=== PATIENT | female | born 2000 | race Two or more races ===

== ENCOUNTER → 2024-11-01 | Outpatient (CLI) | payer MEDICAID ==
[~2024-11-01] VITALS: Ht 165.1 cm; Wt 74.8 kg
--- NOTE | 2024-11-05 14:22 | DVHSR ---
APPROVED REPORT Exam: Nuclear Stress Test Indication: Chest pain Ht: 5 ft 5 in Wt: 165 lbs BSA: 1.82 m2 HR: 68 bpm BP: 120/71 mmHg BMI: 27.45 Rhythm: NSR Medical History Medical History: Chest pain Medications: N/A Allergies: No known drug allergies Cardiac Risk Factors: Family Hx of CAD Stress Test Details Stress Test: Exercise stress testing was performed using a Delfino protocol. HR Resting HR: 68 bpmMax Heart Rate (APMHR): 198.275541 bpm Max HR Achieved: 169 bpmTarget HR (85% APMHR): 168.624694 bpm % of APMHR: 85.35 Recovery HR: 89 bpm HR response to stress: Normal HR response to stress BP Resting BP: 120/71 mmHg Max BP: 164/77 mmHg Recovery BP: 130/55 mmHg BP response to stress: Normal blood pressure response to stress. ECG Resting ECG: Sinus Rhythm Stress ECG: SVT Arrhythmia: None Recovery ECG: Sinus Rhythm Clinical Reason for Termination: Target HR achieved Stress Symptoms: None Exercise duration: 8 min sec Exercise capacity: 10.1 METs Stress ECG Conclusion ECG RESPONSE NON ISCHEMIC CARDIOLITE IMAGES NO PERFUSION ABNL LESS THAN 10% LIKELIHOOD FOR STRESS INDUCED ISCHEMIA EF >55% NM EXAM: Myocardial Perfusion REST/STRESS Imaging Protocol: Rest Tc-99m/Stress Tc-99m 1 day Resting Data Rest SPECT myocardial perfusion imaging was performed in supine position 30 minutes following the int ravenous injection of 11 mCi of Tc-99m Sestamibi. Time of rest injection: 08 Time of rest imagin Administration Route: IV Administration Site: Left AC Exercise Stress At peak stress, the patient was injected intravenously with 31.3mCi of Tc-99m Sestamibi. Time of stress injection: 0954 Time of stress imagin Administration Route: IV Administration Site: Left AC Heart Rate at time of stress injection: 169 bpm. Patient continued to exercise for 1 minute(s). Gated Stress SPECT was performed 15 minutes after stress injection. The images were gated to evaluate regional wall motion and calculate left ventricular ejection fracti on. Comments Cardiolite injection at 6 minutes, 43 seconds into test. Study Data Post stress, the left ventricular ejection was >55%.. Nuclear Conclusion ECG RESPONSE NON ISCHEMIC CARDIOLITE IMAGES NO PERFUSION ABNL LESS THAN 10% LIKELIHOOD FOR STRESS INDUCED ISCHEMIA EF >55%
== END | disposition home or self-care (01) ==
LOC: Rad HDHVI 08:42
PROVIDERS: ATTEND Internal Medicine Cardiovascular Disease
DX: R07.89 Other chest pain (principal); Z82.49 Family history of ischemic heart disease and other diseases of the circulatory system
CPT/HCPCS: 78452; 93017; A9500; 96374

== ENCOUNTER 2025-08-23 11:28 | Inpatient (IN) | payer MEDICAID ==
[~2025-08-23] VITALS: Ht 165.1 cm; Wt 80.2 kg
--- NOTE | 2025-08-23 12:03 | ED.PDOC ---
SOB-HPI HPI Comments HPI: 24 year old female presents to the emergency department with a chief complaint of cough onset 5 days. Patient began experiencing cough, sneezing, nasal congestion 5 days ago, was seen at Urgent Care are prescribed Z-pac, Methylprednisolone, began course 08/17/25, finished it last night. She noticed symptoms have not improved, is now experiencing epigastric pain and urinary symptoms including frequency and urinary dribbling. Denies nausea, vomiting, diarrhea, hematuria, headache, dizziness, shortness of breath. No other symptoms or modifying factors present at this time. Initial Vitals BP: 126/100 HR: 121 RR: 15 O2 Sat: 99% Temp: 99.6 F Past Medical history: Denies Past Surgical history: Denies Medications: Denies Social History: Denies smoking, ETOH, and drug use. Allergies: NKDA [place]: cough, runny nose, urinary symptoms. tachy HPI: Poor Historian. REVIEW OF SYSTEMS: CONSTITUTIONAL: Denies acute: fever, diaphoresis, chills, HEAD: Denies acute: headache, photophobia Eyes: Denies acute: Double vision, vision loss, eye pain, eye discharge. EARS: Denies acute: tinnitus, hearing loss, ear discharge, ear pain, THROAT: Denies acute: sore throat, swelling, difficulty swallowing , pain with swallowing, change in voice. NECK: Denies acute: neck pain, neck swelling, stiff neck. HEART: Denies acute : chest pain, palpitations, LUNGS: Denies acute: SOB, wheezing, hemoptysis ABDOMEN: Denies acute: abdominal pain, Nausea, Vomiting, diarrhea, melena , hematemesis, hematochezia SKIN: Denies acute: rash, redness, lesions, itchiness. EXTREMITIES: Denies acute: calf pain, numbness, tingling, weakness, denies pain in extremity. Denies acute: Low back pain. Neuro: Denies acute: focal neurological deficit, motor or sensory focal neurological deficit, tremors, seizure like activity, confusion, dizziness, change in mental status, loss of bowel or bladder function, cauda equina like symptoms. : Denies acute: dysuria, hematuria, flank pain, PSYCH: Denies acute: hallucination, suicidal ideation, homicidal ideation. FEMALE: Denies acute: abnormal vaginal bleeding, foul odor, unusual discharge. PHYSICAL EXAM: General: ----mild----acute distress, awake and alert. Head: normocephalic, atraumatic. No raccoon's eyes, no alvarado sign. Neck: supple, trachea is midline, no swelling. Throat: Normal phonation. Eyes:, no erythema, no purulent discharge, no proptosis, no icterus. Heart: regular tachycardia, no significant murmur appreciated. Lungs: no apparent respiratory distress, Able to speak in full sentences. No wheezing, no rhonchi, no crackles. No stridors Clear to auscultation bilaterally. Abdomen: mild epigastric tender to palpation, non distended, soft, no guarding, no rebound, + bowel sounds. Neuro: Awake, Alert, oriented to name, self, situation, follows commands GCS=15. Speech is normal. Skin: no petechia, no purpura, no cyanosis, non-pale, not jaundice. Lower extremities: --no - Pitting edema no deformity, no focal swelling, no calf TTP. Makes eye contact. moves all four extremities. Face: no apparent facial droop. Ambulating in the ED independently. ED COURSE: DISCLAIMER: This medical document was created using an electronic medical record system with voice recognition software and computerized dictation system. Although this document has been carefully reviewed, there might still be some phonetic and typographical errors. Occasional wrong-word or "sound-alike" substitutions may have occurred due to the inherent limitations of voice recognition software. These areas are purely typographical due to imperfections of the software programs and do not reflect any compromise in the patient's medical care. Please read the chart carefully and recognize, using context, where these substitutions have occurred. Chief Complaint: Cough Time Seen by MD: 11:55 Primary Care Provider: RADU Jenkins notes: Medications, Allergies Information Source: Patient Mode of Arrival: Ambulatory Severity: Moderate Timing: Days Duration: Since onset Context: At Rest PE Risk Factors: None Prehospital treatment: Other (Z-aki) Past Medical History PAST MEDICAL HISTORY: Denies Surgical History: Denies all surgeries INSIDE TRUCKER History: No Pertinent INSIDE TRUCKER History Family History Family History: Unknown Social History Smoker: Non-Smoker Alcohol: Denies ETOH Use Drugs: Denies Drug Use Lives In: Home Was a procedure done? Was a procedure done?: No X-Ray, Labs, Meds, VS Vital Signs Date Time Temp Pulse Resp B/P (MAP) Pulse Ox O2 Delivery O2 Flow Rate FiO2 08/23/25 13:39 101.2 128 19 133/84 (100) 98 101.2 08/23/25 13:39 128 19 98 Room Air 08/23/25 11:31 99.6 121 15 126/100 99 99.6 08/23/25 11:31 15 99 Room Air* 0 21 Lab Test 08/23/25 12:26 08/23/25 12:10 08/23/25 12:00 Range/Units White Blood Count 9.7 4.4-10.8 10^3/uL Red Blood Count 4.85 4.0-5.20 10^6/uL Hemoglobin 14.3 12.2-16.2 g/dL Hematocrit 42.1 36.0-46.0 % Mean Corpuscular Volume 86.7 80.0-100.0 fL Mean Corpuscular Hemoglobin 29.4 28.0-32.0 pg Mean Corpuscular Hemoglobin Concent 33.9 32.0-36.0 g/dL Red Cell Distribution Width 12.3 11.8-14.3 % Platelet Count 326 140-450 10^3/uL Mean Platelet Volume 7.4 6.9-10.8 fL Neutrophils (%) (Auto) 79.1 37.0-80.0 % Lymphocytes (%) (Auto) 11.2 10.0-50.0 % Monocytes (%) (Auto) 8.5 0.0-12.0 % Eosinophils (%) (Auto) 0.8 0.0-7.0 % Basophils (%) (Auto) 0.4 0.0-2.0 % Neutrophils # (Auto) 7.6 1.6-8.6 10 ^3/uL Lymphocytes # (Auto) 1.1 0.4-5.4 10 ^3/uL Monocytes # (Auto) 0.8 0-1.3 10 ^3/uL Eosinophils # (Auto) 0.1 0-0.8 10 ^3/uL Basophils # (Auto) 0 0-0.2 10 ^3/uL Nucleated Red Blood Cells 0.0 % Sodium Level 139 136-145 mmol/L Potassium Level 3.8 3.5-5.1 mmol/L Chloride Level 103 98-107 mmol/L Carbon Dioxide Level 27 20-31 mmol/L Anion Gap 9 5-15 Blood Urea Nitrogen 7 L 9-23 mg/dL Creatinine 0.74 0.550-1.02 mg/dL Glomerular Filtration Rate Calc 117 >90 mL/min BUN/Creatinine Ratio 9.5 L 10.0-20.0 Serum Glucose 102 74-106 mg/dL Lactic Acid Level 1.5 0.4-2.0 mmol/L Calcium Level 9.0 8.7-10.4 mg/dL Magnesium Level 1.9 1.6-2.6 mg/dL Total Bilirubin 0.5 0.2-1.0 mg/dL Aspartate Amino Transferase (AST) 103 H 13-40 U/L Alanine Aminotransferase (ALT) 120 H 7-40 U/L Alkaline Phosphatase 62 46-116 U/L Total Protein 7.4 5.7-8.2 g/dL Albumin 4.5 3.2-4.8 g/dL Influenza Type A Antigen Positive Negative Influenza Type B Antigen Negative Negative SARS-CoV-2 Antigen (Rapid) Negative NEGATIVE Urine Color Colorless Yellow Urine Clarity Turbid H Clear Urine pH 6.5 5.0-9.0 Urine Specific [place] 1.022 1.001-1.035 Urine Protein Trace H Negative Urine Ketones Negative Negative Urine Blood 3+ H Negative /uL Urine Nitrite Negative Negative Urine Bilirubin Negative Negative Urine Urobilinogen Normal Negative mg/dL Urine Leukocyte Esterase 1+ Negative /uL Urine RBC 446 0 - 4 /hpf Urine Microscopic WBC 29 H 0-5 /HPF Urine Squamous Epithelial Cells Few <5 /hpf Urine Bacteria Few H None Seen /hpf Urine Glucose Normal Normal mg/dL [facility] [id number] [place] [address] Ph: [phone] DIAGNOSTIC IMAGING Diagnostic Imaging Report : [id number] Signed PATIENT: ALEX HAYWOODLIYAHACCT: [id number] UNIT: [id number] : 2000 LOC: ER ROOM / BED: / AGE / SEX: 24 / F ADM STATUS: REG ER SERVICE 1200 ORDERING PHYSICIAN: JOE BACK DO PROCEDURE(s): CXRP - CHEST PORTABLE REASON: cough ORDER NUMBER(s): [id number], ACCESSION NUMBER(s): [id number] CHEST RADIOGRAPH INDICATION: cough TECHNIQUE: Single frontal view of the chest was obtained COMPARISON: None FINDINGS: Lines and Tubes: None Lungs: Clear Pleura: No effusion. No pneumothorax. Cardiomediastinal contours: Unremarkable Bones: Unremarkable IMPRESSION: 1. No acute disease. ATED BY: CECIL RAMOS MD DICTATED DATE/TIME: 08/23/25 1234 SIGNED BY: CECIL RAMOS MD SIGNED DATE/TIME: 08/23/25 1234 CC: Time of 1ST Reevaluation: 12: Reevaluation 1ST: Unchanged Patient Education/Counseling: Diagnosis, Treatment Family Education/Counseling: No Family Present Departure 1 Departure Time of Disposition: 13:56 Impression: Primary Impression: Influenza A Additional Impressions: UTI (urinary tract infection) Elevated LFTs Additional Instructions: [place] [address] Ph: [phone] DIAGNOSTIC IMAGING Diagnostic Imaging Report : [id number] Signed PATIENT: ALEX HAYWOOD ACCT: [id number] UNIT: [id number] : 2000 LOC: ER ROOM / BED: / AGE / SEX: 24 / F ADM STATUS: REG ER SERVICE 1200 ORDERING PHYSICIAN: JOE BACK DO PROCEDURE(s): CXRP - CHEST PORTABLE REASON: cough ORDER NUMBER(s): [id number], ACCESSION NUMBER(s): [id number] CHEST RADIOGRAPH INDICATION: cough TECHNIQUE: Single frontal view of the chest was obtained COMPARISON: None FINDINGS: Lines and Tubes: None Lungs: Clear Pleura: No effusion. No pneumothorax. Cardiomediastinal contours: Unremarkable Bones: Unremarkable IMPRESSION: 1. No acute disease. ATED BY: CECIL RAMOS MD DICTATED DATE/TIME: 08/23/25 1234 SIGNED BY: CECIL RAMOS MD SIGNED DATE/TIME: 08/23/25 1234 CC: e-Prescriptions Nitrofurantoin Monohydrate Mac (Macrobid) 100 Mg Cap 100 MG PO BID for 7 Days, #14 CAP Prov: JOE BACK DO 08/23/25 Discharged With: Self Critical Care Note Critical Care Time?: No I personally scribed for JOE BACK DO ([email or web address]) on 08/23/25 at 12:03. Electronically submitted by Bernice Houser ([email or web address]). I personally scribed for JOE BACK DO ([email or web address]) on 08/23/25 at 12:44. Electronically submitted by Bernice Houser ([email or web address]). JOE BACK DO Aug 23, 2025 12:03
--- NOTE | 2025-08-23 12:36 | DVH ---
CHEST RADIOGRAPH INDICATION: cough TECHNIQUE: Single frontal view of the chest was obtained COMPARISON: None FINDINGS: Lines and Tubes: None Lungs: Clear Pleura: No effusion. No pneumothorax. Cardiomediastinal contours: Unremarkable Bones: Unremarkable IMPRESSION: 1. No acute disease.
[2025-08-23 12:49] LABS: Hematocrit 42.1 % (36.0-46.0); Hemoglobin 14.3 g/dL (12.2-16.2); Mean Corpuscular Hemoglobin 29.4 pg (28.0-32.0); Mean Corpuscular Volume 86.7 fL (80.0-100.0); Nucleated Red Blood Cells % 0.0 %
[2025-08-23 13:07] LABS: Albumin 4.5 g/dL (3.2-4.8); Alkaline Phosphatase 62 U/L (46-116); Anion Gap 9 (5-15); BUN/Creatinine Ratio 9.5 (10.0-20.0); Bilirubin, Total 0.5 mg/dL (0.2-1.0); Calcium 9.0 mg/dL (8.7-10.4); Carbon Dioxide 27 mmol/L (20-31); Chloride 103 mmol/L (98-107); Glucose 102 mg/dL (74-106); Magnesium 1.9 mg/dL (1.6-2.6); Potassium 3.8 mmol/L (3.5-5.1); Sodium 139 mmol/L (136-145); Total Protein 7.4 g/dL (5.7-8.2)
[2025-08-23 13:08] LABS: Alanine Aminotransferase 120 U/L (7-40); Blood Urea Nitrogen 7 mg/dL (9-23)
[2025-08-23 13:23] LABS: Urine Protein, UAD TRACE (Negative)
[2025-08-23 13:24] LABS: COVID19 ANTIGEN SOFIA FIA NEGATIVE (NEGATIVE)
[2025-08-23] MEDS ORDERED: NITR-87 PO (13:58)
[2025-08-23] MEDS: SODIUM CHLORIDE 0.9% 1,000 ML IV ONE ×2 (14:02→15:16)
[2025-08-23] MEDS ORDERED: ACETAMINOPHEN 500 MG TAB or CAP PO STA (14:39)
[2025-08-23] MEDS: ACETAMINOPHEN 325 MG TAB PO ONE (15:26)
[2025-08-23 16:07] LABS: Base Excess -6.0 mmol/L (-2.0-3.0)
[2025-08-23] MEDS ORDERED: guaiFENesin-DM 100/10mg/5ml SYR PO PRN (18:15)
--- NOTE | 2025-08-23 18:40 | DVHHPRES ---
History of Present Illness Resident Creating Document: BUNNYELENGailALIN RESIDENT History of Present Illness Julius is a patient presenting with flu symptoms that have been ongoing since August 16. She initially sought care at urgent care on August 17, where she was prescribed antibiotics and steroids. However, these medications did not provide relief, and her condition worsened after completing the course yesterday. Last night, she experienced difficulty breathing, choking sensations, and difficulty swallowing. She reports that friends became sick after her initial illness, suggesting she may have been the source of transmission to her social contacts. She lives with her mother and denies having any personal medical conditions, fever , dry cough . PMH - none Surgical History - Appendectomy Family History - Mother: Asthma Social History - Living Situation: Lives at home with mother, denies smoking, alcohol and other drug abuse Medications and Supplements - Antibiotics - Recently completed course. Did not work. - Steroids - Recently completed course yesterday. Review of Systems Respiratory: Positive for cough, difficulty breathing, difficulty swallowing, fever, dry cough. Review of Systems Allergies: Coded Allergies: NO KNOWN ALLERGIES (Unverified , 11/08/14) Medications Current Medications Medications Dose Ordered Sig/Jaclyn Route Start Time Stop Time Status Last Admin Dose Admin Acetaminophen 650 mg ONCE STAT PO 08/23/25 14:39 08/23/25 14:40 Cancel Sodium Chloride 10 ml Q8HR IV 08/23/25 22:00 UNV Sodium Chloride 1,000 ml @ 60 mls/hr [id number] IV 08/23/25 18:15 UNV Ondansetron HCl 4 mg Q4HP PRN IV 08/23/25 18:15 UNV Enoxaparin Sodium 40 mg DAILY SC 08/24/25 10:00 UNV Zinc Sulfate 220 mg DAILY PO 08/24/25 10:00 UNV Ascorbic Acid 500 mg BID PO 08/23/25 22:00 UNV Multivitamins 1 tab DAILY PO 08/24/25 10:00 UNV Acetaminophen 650 mg Q6HP PRN PO 08/23/25 18:15 UNV Azithromycin 250 ml @ 125 mls/hr DAILY IV 08/24/25 10:00 UNV Oseltamivir Phosphate 75 mg Q12HR PO 08/23/25 22:00 08/28/25 21:59 UNV Ipratropium [place] 0.5 mg Q6HWA NEB 08/24/25 06:00 UNV Albuterol 2.5 mg Q6HPRN PRN NEB 08/23/25 18:15 UNV Guaifenesin/ Dextromethorphan 10 ml Q4HP PRN PO 08/23/25 18:15 UNV Pantoprazole Sodium 40 mg DAILY@0600 PO 08/24/25 06:00 UNV Exam Vital Signs Vital Signs Date Time Temp Pulse Resp B/P (MAP) Pulse Ox O2 Delivery O2 Flow Rate FiO2 08/23/25 17:26 98.9 115 18 127/81 (96) 99 98.9 08/23/25 13:39 Room Air 08/23/25 11:31 0 21 Exam Pt is lying on bed General Appearance: Alert, Oriented X3, Cooperative, Not in acute distress HEENT: Atraumatic, Mucous membranes moist/pink Respiratory: wheeze b/l Cardiovascular: Regular rate, Normal S1, Normal S2, No murmurs Abdominal: Active bowel sounds, Soft, no distention, no tenderness Extremities: No edema, Normal pulses, No tenderness/swelling Skin: No Significant rash, except past surgical scars Neuro: Normal speech, sensorimotor deficits none Psych/Mental Status: Mental status NL, Mood NL Nurse was there as surveillance inspector during examination Labs/Xrays Labs Test 08/23/25 16:03 08/23/25 12:26 08/23/25 12:10 08/23/25 12:00 Range/Units Blood Gas Specimen Type Arterial Blood Gas Sample Site Right brachial Blood Gas Patient Temperature 37.0 Arterial Blood Date Drawn [id number] Arterial Blood pH 7.394 7.350-7.450 Arterial Blood Partial Pressure CO2 29.5 L 32.0-45.0 mmHg Arterial Blood Partial Pressure O2 90.5 83.0-108.0 mmHg Arterial Blood HCO3 17.6 L 21.0-28.0 mmol/L Arterial Blood Oxygen Saturation 96.5 94.0-98.0 % Arterial Blood Base Excess -6.0 L -2.0-3.0 mmol/L Arterial Blood Oxyhemoglobin 95.2 94.0-98.0 % Arterial Blood Carboxyhemoglobin 0.6 0.5-1.5 % Arterial Blood Methemoglobin 0.7 0.0-1.5 % Arterial Blood Deoxyhemoglobin 3.5 0.0-5.0 % Micahel Test N/a Blood Gas Total Hemoglobin 13.30 12.0-16.0 g/dL Blood Gas Modality Room air FiO2 % 21.0 White Blood Count 9.7 4.4-10.8 10^3/uL Red Blood Count 4.85 4.0-5.20 10^6/uL Hemoglobin 14.3 12.2-16.2 g/dL Hematocrit 42.1 36.0-46.0 % Mean Corpuscular Volume 86.7 80.0-100.0 fL Mean Corpuscular Hemoglobin 29.4 28.0-32.0 pg Mean Corpuscular Hemoglobin Concent 33.9 32.0-36.0 g/dL Red Cell Distribution Width 12.3 11.8-14.3 % Platelet Count 326 140-450 10^3/uL Mean Platelet Volume 7.4 6.9-10.8 fL Neutrophils (%) (Auto) 79.1 37.0-80.0 % Lymphocytes (%) (Auto) 11.2 10.0-50.0 % Monocytes (%) (Auto) 8.5 0.0-12.0 % Eosinophils (%) (Auto) 0.8 0.0-7.0 % Basophils (%) (Auto) 0.4 0.0-2.0 % Neutrophils # (Auto) 7.6 1.6-8.6 10 ^3/uL Lymphocytes # (Auto) 1.1 0.4-5.4 10 ^3/uL Monocytes # (Auto) 0.8 0-1.3 10 ^3/uL Eosinophils # (Auto) 0.1 0-0.8 10 ^3/uL Basophils # (Auto) 0 0-0.2 10 ^3/uL Nucleated Red Blood Cells 0.0 % Sodium Level 139 136-145 mmol/L Potassium Level 3.8 3.5-5.1 mmol/L Chloride Level 103 98-107 mmol/L Carbon Dioxide Level 27 20-31 mmol/L Anion Gap 9 5-15 Blood Urea Nitrogen 7 L 9-23 mg/dL Creatinine 0.74 0.550-1.02 mg/dL Glomerular Filtration Rate Calc 117 >90 mL/min BUN/Creatinine Ratio 9.5 L 10.0-20.0 Serum Glucose 102 74-106 mg/dL Lactic Acid Level 1.5 0.4-2.0 mmol/L Calcium Level 9.0 8.7-10.4 mg/dL Magnesium Level 1.9 1.6-2.6 mg/dL Total Bilirubin 0.5 0.2-1.0 mg/dL Aspartate Amino Transferase (AST) 103 H 13-40 U/L Alanine Aminotransferase (ALT) 120 H 7-40 U/L Alkaline Phosphatase 62 46-116 U/L Total Protein 7.4 5.7-8.2 g/dL Albumin 4.5 3.2-4.8 g/dL Influenza Type A Antigen Positive Negative Influenza Type B Antigen Negative Negative SARS-CoV-2 Antigen (Rapid) Negative NEGATIVE Urine Color Colorless Yellow Urine Clarity Turbid H Clear Urine pH 6.5 5.0-9.0 Urine Specific [place] 1.022 1.001-1.035 Urine Protein Trace H Negative Urine Ketones Negative Negative Urine Blood 3+ H Negative /uL Urine Nitrite Negative Negative Urine Bilirubin Negative Negative Urine Urobilinogen Normal Negative mg/dL Urine Leukocyte Esterase 1+ Negative /uL Urine RBC 446 0 - 4 /hpf Urine Microscopic WBC 29 H 0-5 /HPF Urine Squamous Epithelial Cells Few <5 /hpf Urine Bacteria Few H None Seen /hpf Urine Glucose Normal Normal mg/dL SEPSIS Sepsis Screen Date sepsis recognized/suspect: Aug 23, 2025 Time Sepsis recognized/suspect: 1411 Recent Procedure: No On Antibiotic Therapy: Yes (AZITHROMYCIN ) Respiratory Rate >20: No Heart Rate >90: Yes (129) Temp<36 C (96.8 F) or >38.3 C: Yes (101.2) SBP <90 or MAP <65 mmHG: No New Acute Mental Status Change: No Is the patient on CPAP, BIPAP,: No Physician Orders Trouble Operator (08/23/25 ) Chest Portable (08/23/25 12:00) Abg W/ Co-Ox (08/23/25 15:18) Admit (08/23/25 18:11) Code Status (08/23/25 18:11) Sodium Chloride Lock (Saline Lock Ns) (08/23/25 22:00) Sodium Chloride 0.9% (08/23/25 18:15) Oxygen Per Hour (08/23/25 18:11) Ondansetron Hcl (Zofran) (08/23/25 18:15) Enoxaparin Sodium (Lovenox) (08/24/25 10:00) Zinc Sulfate (08/24/25 10:00) Ascorbic Acid Tablet (Vitamin C Tablet) (08/23/25 22:00) Multiple Vitamin Tablet (Mvi Tab) (08/24/25 10:00) Complete Blood Count (08/24/25 04:00) Comprehensive Metabolic Panel (08/24/25 04:00) Condition: Fair (08/23/25 18:11) Acetaminophen Tablet (Tylenol Tablet) (08/23/25 18:15) Azithromycin 500mg/250ml (Zithromax 500m (08/24/25 10:00) Azithromycin 500mg/250ml (Zithromax 500m (08/23/25 18:15) Oseltamivir 75mg Capsule (Tamiflu 75mg C (08/23/25 22:00) Ipratropium Medneb (Atrovent Medneb) (08/24/25 06:00) Albuterol Medneb (Ventolin Medneb) (08/23/25 18:15) Respiratory Culture W/ Gs (08/23/25 18:11) Regular Diet (08/23/25 Dinner) Magnesium (08/23/25 18:11) Drug Screen (08/23/25 18:11) Rapid Strep Screen - Throat (08/23/25 18:11) Guaifenesin-Dextromet Liquid (Robitussin (08/23/25 18:15) Pantoprazole Tablet (Protonix Tablet) (08/24/25 06:00) Ceftriaxone 1gm/50ml (Rocephin) (08/24/25 09:00) Urine Bacterial Culture (08/23/25 18:37) Vital Signs Date Time Temp Pulse Resp B/P (MAP) Pulse Ox O2 Delivery O2 Flow Rate FiO2 08/23/25 17:26 98.9 115 18 127/81 (96) 99 98.9 08/23/25 16:33 99.2 08/23/25 15:26 101.0 08/23/25 13:39 101.2 128 19 133/84 (100) 98 101.2 08/23/25 13:39 128 19 98 Room Air 08/23/25 11:31 99.6 121 15 126/100 99 99.6 08/23/25 11:31 15 99 Room Air* 0 21 Laboratory Tests Test 08/23/25 12:26 Lactic Acid Level 1.5 mmol/L (0.4-2.0) White Blood Count 9.7 10^3/uL (4.4-10.8) Medications Medications Dose Ordered Sig/Jaclyn Route Start Time Stop Time Status Last Admin Dose Admin Acetaminophen 650 mg ONCE ONCE PO 08/23/25 15:15 08/23/25 15:16 DC 08/23/25 15:26 650 MG Ceftriaxone Sodium 50 ml @ 100 mls/hr ONCE ONCE IV 08/23/25 14:00 08/23/25 14:30 DC 08/23/25 14:00 100 MLS/HR Sodium Chloride 1,000 ml @ 1,000 mls/hr Q1H ONCE IV 08/23/25 12:15 08/23/25 13:14 DC 08/23/25 14:02 1,000 MLS/HR Sodium Chloride 1,000 ml @ 1,000 mls/hr Q1H ONCE IV 08/23/25 14:45 08/23/25 15:44 DC 08/23/25 15:16 1,000 MLS/HR Assessment/Plan Assessment/Plan Julius presents with influenza symptoms since August 16, with worsening respiratory symptoms including difficulty breathing and wheezing despite completing antibiotics and steroids from urgent care. Influenza A PNA R/o Strep throat Plan: - Admit med/surge - Isolation precautions - Administer IV azithromycin - start Tamiflu q.12 for 5 days - Provide breathing treatments for bronchospasm - Cough medication Robitassin for symptom relief - Monitor respiratory status closely; initiate emergency interventions if severe shortness of breath develops Acute complicated UTI/ cystitis Plan: - evident on urinalysis - ordered urine bacterial culture - currently giving Rocephin GI PPX: Protonox VTE ppx: Lovenox Diet: Regular Goals of care addressed with the patient for more than 27 minutes: Full code status Case discussed with , patient and nurse Plan discussed with: Patient, Other (mom and rn) My Orders Orders - JP HOLLIS RESIDENT Procedure Category Date Status Time Admit ADMIT 08/23/25 Transmitted 18:11 Code Status CODE 08/23/25 Transmitted 18:11 Sodium Chloride Lock PHA 08/23/25 In Process (Saline Lock Ns) 22:00 Sodium Chloride 0.9% PHA 08/23/25 In Process 18:15 Oxygen Per Hour RT 08/23/25 Transmitted 18:11 Ondansetron Hcl PHA 08/23/25 Logged (Zofran) 18:15 Enoxaparin Sodium PHA 08/24/25 Logged (Lovenox) 10:00 Zinc Sulfate PHA 08/24/25 Logged 10:00 Ascorbic Acid Tablet PHA 08/23/25 In Process (Vitamin C Tablet) 22:00 Multiple Vitamin PHA 08/24/25 Logged Tablet (Mvi Tab) 10:00 Complete Blood Count LAB 08/24/25 Verified 04:00 Comprehensive LAB 08/24/25 Verified Metabolic Panel 04:00 Condition: Fair EUSEBIA 08/23/25 In Process 18:11 Acetaminophen Tablet PHA 08/23/25 In Process (Tylenol Tablet) 18:15 Azithromycin PHA 08/24/25 Logged 500mg/250ml 10:00 Azithromycin PHA 08/23/25 In Process 500mg/250ml 18:15 Oseltamivir 75mg PHA 08/23/25 Logged Capsule (Tamiflu 75mg 22:00 Ipratropium Medneb PHA 08/24/25 In Process (Atrovent Medneb) 06:00 Albuterol Medneb PHA 08/23/25 In Process (Ventolin Medneb) 18:15 Respiratory Culture GEOVANNA 08/23/25 Logged W/ Gs 18:11 Regular Diet DIET 08/23/25 Transmitted Dinner Magnesium LAB 08/23/25 Logged 18:11 Drug Screen LAB 08/23/25 Logged 18:11 Rapid Strep Screen - LAB 08/23/25 Logged Throat 18:11 Guaifenesin-Dextromet PHA 08/23/25 In Process Liquid (Robitussin 18:15 Pantoprazole Tablet PHA 08/24/25 Logged (Protonix Tablet) 06:00 Ceftriaxone 1gm/50ml PHA 08/24/25 Logged (Rocephin) 09:00 Urine Bacterial GEOVANNA 08/23/25 Uncollected Culture 18:37 Visit Coding STANDARD RES Billing Provider: HALEY HOFFMAN MD Date of Service if different f: Aug 23, 2025 Common Visit Codes: [id number] INP/OBS CARE (HIGH) Secondary Visit Codes: [id number] CARE PLAN 30 MINUTES JP HOLLIS RESIDENT Aug 23, 2025 18:40
[2025-08-23 19:12] LABS: Rapid Strep A Screen-Throat Negative
[2025-08-23 19:23] VITALS: BP 127/81; PULSE 115; RESP 18; TEMP 98.9; O2SAT 100
[2025-08-23] MEDS: SODIUM CHLORIDE 0.9% 1,000 ML IV SCH (19:38)
[2025-08-23] MEDS: guaiFENesin-DM 100/10mg/5ml SYR PO ONE (19:53)
[2025-08-23] MEDS: AZITHROMYCIN 500MG/250ML 250 ML IV ONE (19:54)
[2025-08-23] MEDS: SODIUM CHLOR 0.9% PF (SALINE LOCK) 10ML VIAL/SYR IV SCH (22:43)
[2025-08-23] MEDS: ONDANSETRON HCL 4 MG/2 ML VIAL IV PRN (22:43)
[2025-08-23] MEDS: ACETAMINOPHEN 325 MG TAB PO PRN (22:45)
[2025-08-23] MEDS: OSELTAMIVIR 75 MG CAP PO SCH (23:17)
[2025-08-23] MEDS: ASCORBIC ACID 500 MG TAB PO SCH (23:17)
[2025-08-24] VITALS (7 sets, daily range): BP systolic 112; BP diastolic 75; PULSE 80–101; RESP 16–20; TEMP 99.1; O2SAT 96–100
[2025-08-24] MEDS: PANTOPRAZOLE 40 MG TAB PO SCH (06:20)
[2025-08-24] MEDS: IPRATROPIUM BROM 0.5 MG/2.5ML INH SOL NEB SCH (06:38)
[2025-08-24] MEDS: ALBUTEROL SULF 2.5 MG/0.5ML(0.5%) NEB SOLN NEB PRN (06:38)
[2025-08-24 06:59] LABS: Hematocrit 36.9 % (36.0-46.0); Hemoglobin 12.7 g/dL (12.2-16.2); Mean Corpuscular Hemoglobin 30.2 pg (28.0-32.0); Mean Corpuscular Volume 87.7 fL (80.0-100.0); Nucleated Red Blood Cells % 0.1 %
[2025-08-24 07:23] LABS: Anion Gap 7 (5-15); Carbon Dioxide 25 mmol/L (20-31); Chloride 108 mmol/L (98-107); Potassium 3.8 mmol/L (3.5-5.1); Sodium 140 mmol/L (136-145)
[2025-08-24 07:24] LABS: Alkaline Phosphatase 51 U/L (46-116); BUN/Creatinine Ratio 10.2 (10.0-20.0); Calcium 8.3 mg/dL (8.7-10.4)
[2025-08-24 07:25] LABS: Blood Urea Nitrogen 6 mg/dL (9-23); Glucose 87 mg/dL (74-106); Total Protein 6.2 g/dL (5.7-8.2)
[2025-08-24 07:26] LABS: Alanine Aminotransferase 135 U/L (7-40); Albumin 3.7 g/dL (3.2-4.8); Bilirubin, Total 0.4 mg/dL (0.2-1.0)
[2025-08-24 09:16] LABS: Amphetamine Screen, Urine Neg (NEGATIVE); Barbiturate Scree,Urine Neg (NEGATIVE); Benzodiazephine Screen, Urine Neg (NEGATIVE); Cannabinoid Screen, Urine Neg (NEGATIVE); Cocaine Screen, Urine Neg (NEGATIVE); Opiate Scree,Urine Neg (NEGATIVE); Phencyclidine Screen, Urine Neg (NEGATIVE)
[2025-08-24] MEDS: ENOXAPARIN SOD 40 MG/0.4 ML SYRINGE SC SCH (12:02)
[2025-08-24] MEDS: AZITHROMYCIN 500MG/250ML 250 ML IV SCH (12:02)
[2025-08-24] MEDS: ZINC SULFATE 220mg CAP or TAB PO SCH (12:02)
[2025-08-24] MEDS: MULTIPLE VITAMIN TAB PO SCH (12:02)
[2025-08-24] MEDS: DOXYCYCLINE 100MG/100ML 100 ML IV SCH (14:00)
--- NOTE | 2025-08-24 14:09 | DVHPN2 ---
Reviewed: H&P Changes from previous H/P or p: No Changes General: Per HPI Objective Vitals Vital Signs Date Time Temp Pulse Resp B/P (MAP) Pulse Ox O2 Delivery O2 Flow Rate FiO2 08/24/25 13:24 98.6 08/24/25 08:00 97 08/24/25 07:28 88 114/68 (83) 98 08/24/25 07:28 Room Air* 0 21 Intake/Output Intake and Output 08/24/25 06:59 Intake Total 2300 ml Output Total 400 ml Balance 1900 ml Intake IV Total 2300 ml Output Emesis 400 ml Exam GEN: Healthy appearing, well-developed, NAD. HEENT: NC/AT; MMM. CV: RRR, no m/r/g. LUNGS: CTAB, no w/r/c. ABD: Soft, NT/ND, NBS, no masses or organomegaly. EXT: skin Warm, well perfused. no rashes. No clubbing, cyanosis, or edema. NEURO: Ambulating with no limitations. No focal deficits. Medications Current Medications Medications Dose Ordered Sig/Jaclyn Route Start Time Stop Time Status Last Admin Dose Admin Acetaminophen 650 mg ONCE STAT PO 08/23/25 14:39 08/23/25 14:40 Cancel Sodium Chloride 10 ml Q8HR IV 08/23/25 22:00 08/24/25 06:05 10 ML Sodium Chloride 1,000 ml @ 60 mls/hr [id number] IV 08/23/25 18:15 08/24/25 12:14 60 MLS/HR Ondansetron HCl 4 mg Q4HP PRN IV 08/23/25 18:15 08/23/25 22:43 4 MG Enoxaparin Sodium 40 mg DAILY SC 08/24/25 10:00 08/24/25 12:02 40 MG Zinc Sulfate 220 mg DAILY PO 08/24/25 10:00 08/24/25 12:02 220 MG Ascorbic Acid 500 mg BID PO 08/23/25 22:00 08/24/25 12:02 500 MG Multivitamins 1 tab DAILY PO 08/24/25 10:00 08/24/25 12:02 1 TAB Acetaminophen 650 mg Q6HP PRN PO 08/23/25 18:15 08/24/25 12:15 650 MG Oseltamivir Phosphate 75 mg Q12HR PO 08/23/25 22:00 08/28/25 21:59 08/24/25 12:02 75 MG Ipratropium [place] 0.5 mg Q6HWA NEB 08/24/25 06:00 08/24/25 06:38 0.5 MG Albuterol 2.5 mg Q6HPRN PRN NEB 08/23/25 18:15 08/24/25 06:38 2.5 MG Guaifenesin/ Dextromethorphan 10 ml Q4HP PRN PO 08/23/25 18:15 Pantoprazole Sodium 40 mg DAILY@0600 PO 08/24/25 06:00 08/24/25 06:20 40 MG Ceftriaxone Sodium 50 ml @ 100 mls/hr DAILY@09 IV 08/24/25 09:00 08/24/25 09:14 100 MLS/HR Doxycycline Hyclate 100 ml @ 50 mls/hr Q12H IV 08/24/25 14:00 Laboratory Results Laboratory Tests 08/24/25 06:42 Chemistry Test 08/23/25 18:41 08/24/25 06:42 Magnesium Level 2.0 mg/dL (1.6-2.6) Albumin 3.7 g/dL (3.2-4.8) Calcium Level 8.3 mg/dL (8.7-10.4) L Total Protein 6.2 g/dL (5.7-8.2) LFT Test 08/24/25 06:42 Alanine Aminotransferase (ALT) 135 U/L (7-40) H Alkaline Phosphatase 51 U/L (46-116) Aspartate Amino Transferase (AST) 83 U/L (13-40) H Total Bilirubin 0.4 mg/dL (0.2-1.0) Urinalysis Test 08/23/25 12:00 Urine Color Colorless (Yellow) Urine Clarity Turbid (Clear) H Urine pH 6.5 (5.0-9.0) Urine Specific [place] 1.022 (1.001-1.035) Urine Protein Trace (Negative) H Urine Ketones Negative (Negative) Urine Blood 3+ /uL (Negative) H Urine Nitrite Negative (Negative) Urine Bilirubin Negative (Negative) Urine Urobilinogen Normal mg/dL (Negative) Urine Leukocyte Esterase 1+ /uL (Negative) Urine RBC 446 /hpf (0 - 4) Urine Microscopic WBC 29 /HPF (0-5) H Urine Squamous Epithelial Cells Few /hpf (<5) Urine Bacteria Few /hpf (None Seen) H Urine Glucose Normal mg/dL (Normal) Blood Gas Results Test 08/23/25 16:03 Arterial Blood pH 7.394 (7.350-7.450) FiO2 % 21.0 Microbiology Microbiology Date/Time Source Procedure Growth Status 08/23/25 18:22 Throat Nose/Throat Culture - Preliminary Resulted Labs and/or images reviewed: Labs reviewed by me, Image(s) reviewed by me Assessment/Plan Assessment/Plan Julius is a patient presenting with flu symptoms that have been ongoing since August 16. She initially sought care at urgent care on August 17, where she was prescribed antibiotics and steroids. However, these medications did not provide relief, and her condition worsened after completing the course yesterday. Last night, she experienced difficulty breathing, choking sensations, and difficulty swallowing. She reports that friends became sick after her initial illness, suggesting she may have been the source of transmission to her social contacts. She lives with her mother and denies having any personal medical conditions, fever , dry cough . 08/24: Patient started having URI symptoms 2 weeks ago, was treated in urgent Care with azithromycin and prednisone. Patient's symptoms returned. She came in with a shortness of breath, URI symptoms, found to have influenza pneumonia. Patient likely has postviral pneumonia, influenza a infection, UTI possible. Patient on ceftriaxone azithromycin, since patient failed azithromycin we will do ceftriaxone and doxycycline. Continue rescue inhalers prn. Continue Tamiflu for flu a infection. Patient will likely need inpatient treatment for another day until stabilized. Diagnosis: Pneumonia, community-acquired, Gram-negative/Gram-positive possible Postviral pneumonia, Gram-positive cocci staph likely Influenza a infection Bronchitis possible Ruled out strep pharyngitis Acute complicated UTI Influenza A PNA R/o Strep throat - Admit med/surge - Isolation precautions - start Tamiflu q.12 for 5 days - Provide breathing treatments for bronchospasm - Cough medication Robitassin for symptom relief - Monitor respiratory status closely; initiate emergency interventions if severe shortness of breath develops - evident on urinalysis - ordered urine bacterial culture - currently giving Rocephin and doxycycline. GI PPX: Protonox VTE ppx: Lovenox Diet: Regular Med surge Full code Plan discussed with: Patient My Orders Orders - LAWRENCE KOENIG MD Procedure Category Date Status Time Abdomen Limited US 08/24/25 Taken 13:15 Acute Hepatitis Panel LAB 08/25/25 Verified 04:00 Comprehensive LAB 08/25/25 Verified Metabolic Panel 04:00 Complete Blood Count LAB 08/25/25 Verified 04:00 Doxycycline PHA 08/24/25 In Process 100mg/100ml 14:00 Date of Service: Aug 24, 2025 Billing Provider: LAWRENCE KOENIG MD Common Visit Codes: [id number] INP/OBS CARE(HIGH) LAWRENCE KOENIG MD Aug 24, 2025 14:09
--- NOTE | 2025-08-24 14:12 | DVH ---
INDICATION: RUQ u/s for LFTs high TECHNIQUE: Multiple real-time sonographic images were obtained of the right upper quadrant. COMPARISON: None FINDINGS: The liver demonstrates normal homogeneous echotexture without focal mass lesions. The liver measures 16.4 cm. Normal hepatopetal portal venous flow identified. No evidence of pleural effusion or abdominal ascites. There is no intrahepatic or extrahepatic ductal dilatation. The common duct measures 0.3 cm. The gallbladder is without evidence of stone or sludge. The gallbladder wall measures 0.2 cm and is within normal limits. Negative sonographic johnson's sign. The right kidney measures 10.0 cm. The right kidney is normal in contour, size, and shape. The echogenicity is normal. There is no hydronephrosis. The pancreas is not well visualized due to overlying bowel gas. IMPRESSION: 1. No sonographic evidence of acute right upper quadrant abnormality.
[2025-08-25] VITALS (13 sets, daily range): BP systolic 103–119; BP diastolic 52–85; PULSE 61–105; RESP 16–18; TEMP 97.7–99.4; O2SAT 97–100
[2025-08-25 05:46] LABS: Hematocrit 35.4 % (36.0-46.0); Hemoglobin 12.0 g/dL (12.2-16.2); Mean Corpuscular Hemoglobin 29.7 pg (28.0-32.0); Mean Corpuscular Volume 87.5 fL (80.0-100.0); Nucleated Red Blood Cells % 0.3 %
[2025-08-25 06:06] LABS: Albumin 3.6 g/dL (3.2-4.8); Alkaline Phosphatase 47 U/L (46-116); Anion Gap 8 (5-15); BUN/Creatinine Ratio 8.5 (10.0-20.0); Bilirubin, Total 0.3 mg/dL (0.2-1.0); Carbon Dioxide 28 mmol/L (20-31); Chloride 105 mmol/L (98-107); Glucose 84 mg/dL (74-106); Potassium 3.9 mmol/L (3.5-5.1); Sodium 141 mmol/L (136-145); Total Protein 6.2 g/dL (5.7-8.2)
[2025-08-25 06:13] LABS: Alanine Aminotransferase 99 U/L (7-40); Blood Urea Nitrogen 5 mg/dL (9-23); Calcium 8.5 mg/dL (8.7-10.4)
--- NOTE | 2025-08-25 10:52 | DVHPN2 ---
Reviewed: H&P Changes from previous H/P or p: No Changes General: Per HPI Objective Vitals Vital Signs Date Time Temp Pulse Resp B/P (MAP) Pulse Ox O2 Delivery O2 Flow Rate FiO2 08/25/25 09:00 97.7 105 16 103/52 (69) 98 97.7 08/25/25 07:12 Room Air 08/25/25 07:12 0 21 Intake/Output Intake and Output 08/25/25 07:00 Intake Total 450 ml Balance 450 ml Intake Oral 300 ml IV Total 150 ml # Voids 2 # Bowel Movements 1 Exam GEN: Healthy appearing, well-developed, NAD. HEENT: NC/AT; MMM. CV: RRR, no m/r/g. LUNGS: CTAB, no w/r/c. ABD: Soft, NT/ND, NBS, no masses or organomegaly. EXT: skin Warm, well perfused. no rashes. No clubbing, cyanosis, or edema. NEURO: Ambulating with no limitations. No focal deficits. Medications Current Medications Medications Dose Ordered Sig/Jaclyn Route Start Time Stop Time Status Last Admin Dose Admin Acetaminophen 650 mg ONCE STAT PO 08/23/25 14:39 08/23/25 14:40 Cancel Sodium Chloride 10 ml Q8HR IV 08/23/25 22:00 08/25/25 08:14 10 ML Sodium Chloride 1,000 ml @ 60 mls/hr [id number] IV 08/23/25 18:15 08/25/25 03:45 60 MLS/HR Ondansetron HCl 4 mg Q4HP PRN IV 08/23/25 18:15 08/23/25 22:43 4 MG Enoxaparin Sodium 40 mg DAILY SC 08/24/25 10:00 08/24/25 12:02 40 MG Zinc Sulfate 220 mg DAILY PO 08/24/25 10:00 08/25/25 08:09 220 MG Ascorbic Acid 500 mg BID PO 08/23/25 22:00 08/25/25 08:10 500 MG Multivitamins 1 tab DAILY PO 08/24/25 10:00 08/25/25 08:09 1 TAB Acetaminophen 650 mg Q6HP PRN PO 08/23/25 18:15 08/24/25 20:36 650 MG Oseltamivir Phosphate 75 mg Q12HR PO 08/23/25 22:00 08/28/25 21:59 08/25/25 08:09 75 MG Ipratropium [place] 0.5 mg Q6HWA NEB 08/24/25 06:00 08/25/25 07:12 0.5 MG Albuterol 2.5 mg Q6HPRN PRN NEB 08/23/25 18:15 08/25/25 07:12 2.5 MG Guaifenesin/ Dextromethorphan 10 ml Q4HP PRN PO 08/23/25 18:15 Pantoprazole Sodium 40 mg DAILY@0600 PO 08/24/25 06:00 08/25/25 05:30 40 MG Ceftriaxone Sodium 50 ml @ 100 mls/hr DAILY@09 IV 08/24/25 09:00 08/25/25 08:14 100 MLS/HR Doxycycline Hyclate 100 ml @ 50 mls/hr Q12H IV 08/24/25 14:00 08/25/25 01:41 50 MLS/HR Laboratory Results Laboratory Tests 08/25/25 04:40 Chemistry Test 08/25/25 04:40 Albumin 3.6 g/dL (3.2-4.8) Calcium Level 8.5 mg/dL (8.7-10.4) L Total Protein 6.2 g/dL (5.7-8.2) LFT Test 08/25/25 04:40 Alanine Aminotransferase (ALT) 99 U/L (7-40) H Alkaline Phosphatase 47 U/L (46-116) Aspartate Amino Transferase (AST) 41 U/L (13-40) H Total Bilirubin 0.3 mg/dL (0.2-1.0) Urinalysis Test 08/23/25 12:00 Urine Color Colorless (Yellow) Urine Clarity Turbid (Clear) H Urine pH 6.5 (5.0-9.0) Urine Specific [place] 1.022 (1.001-1.035) Urine Protein Trace (Negative) H Urine Ketones Negative (Negative) Urine Blood 3+ /uL (Negative) H Urine Nitrite Negative (Negative) Urine Bilirubin Negative (Negative) Urine Urobilinogen Normal mg/dL (Negative) Urine Leukocyte Esterase 1+ /uL (Negative) Urine RBC 446 /hpf (0 - 4) Urine Microscopic WBC 29 /HPF (0-5) H Urine Squamous Epithelial Cells Few /hpf (<5) Urine Bacteria Few /hpf (None Seen) H Urine Glucose Normal mg/dL (Normal) Microbiology Microbiology Date/Time Source Procedure Growth Status 08/23/25 18:22 Throat Nose/Throat Culture - Preliminary Resulted Labs and/or images reviewed: Labs reviewed by me, Image(s) reviewed by me Assessment/Plan Assessment/Plan Julius is a patient presenting with flu symptoms that have been ongoing since August 16. She initially sought care at urgent care on August 17, where she was prescribed antibiotics and steroids. However, these medications did not provide relief, and her condition worsened after completing the course yesterday. Last night, she experienced difficulty breathing, choking sensations, and difficulty swallowing. She reports that friends became sick after her initial illness, suggesting she may have been the source of transmission to her social contacts. She lives with her mother and denies having any personal medical conditions, fever , dry cough . 08/24: Patient started having URI symptoms 2 weeks ago, was treated in urgent Care with azithromycin and prednisone. Patient's symptoms returned. She came in with a shortness of breath, URI symptoms, found to have influenza pneumonia. Patient likely has postviral pneumonia, influenza a infection, UTI possible. Patient on ceftriaxone azithromycin, since patient failed azithromycin we will do ceftriaxone and doxycycline. Continue rescue inhalers prn. Continue Tamiflu for flu a infection. Patient will likely need inpatient treatment for another day until stabilized. 08/25: Patient now having emesis, some p.o. intolerance. We will change diet to full liquid diet continue IV access. Gastroenteritis infectious etiology likely, we will change antibiotics to Unasyn and doxycycline. Continuing IV fluids LR 100 cc/hour for total of 1 L. continue q.4 vital checks. Unstable to discharge today. We will also get blood culture and lactic acid level. Diagnosis: Pneumonia, community-acquired, Gram-negative/Gram-positive possible Acute gastroenteritis, infectious etiology likely Intractable nausea and vomiting due to above Postviral pneumonia, Gram-positive cocci staph likely Influenza a infection Bronchitis possible Ruled out strep pharyngitis Acute complicated UTI - Admit med/surge - Isolation precautions - start Tamiflu q.12 for 5 days - Provide breathing treatments for bronchospasm - Cough medication Robitassin for symptom relief - Monitor respiratory status closely; initiate emergency interventions if severe shortness of breath develops - evident on urinalysis - ordered urine bacterial culture - currently giving Rocephin and doxycycline. GI PPX: Protonox VTE ppx: Lovenox Diet: Regular Med surge Full code Plan discussed with: Patient My Orders Orders - LAWRENCE KOENIG MD Procedure Category Date Status Time Abdomen Limited US 08/24/25 Resulted 13:15 Acute Hepatitis Panel LAB 08/25/25 In Process 04:00 Doxycycline PHA 08/24/25 In Process 100mg/100ml 14:00 Blood Culture GEOVANNA 08/25/25 Logged 10:42 Lactated Ringers Lr PHA 08/25/25 Transmitted 11:00 Pantoprazole PHA 08/25/25 Transmitted (Protonix) 11:00 Ketorolac Injection PHA 08/25/25 Transmitted (Toradol Injection) 11:00 Date of Service: Aug 25, 2025 Billing Provider: LAWRENCE KOENIG MD Common Visit Codes: [id number] INP/OBS CARE(HIGH) LAWRENCE KOENIG MD Aug 25, 2025 10:51
[2025-08-25] MEDS: KETOROLAC TROMETH 30 MG/ML 1ML VIAL IV ONE (11:06)
[2025-08-25] MEDS: PANTOPRAZOLE 40 MG/10 ML VIAL INJ IV SCH (11:06)
[2025-08-25] MEDS: LACTATED RINGER'S 1,000 ML IV ONE (11:06)
[2025-08-25] MEDS: AMPICILLIN & SULBACTAM SODIUM 3 GM in SODIUM CHL 0.9% 100 ML IV SCH (11:13)
[2025-08-26] VITALS (9 sets, daily range): BP systolic 95–133; BP diastolic 63–88; PULSE 60–85; RESP 15–18; TEMP 97.9–98.8; O2SAT 96–100
[2025-08-26 06:20] LABS: Hematocrit 34.2 % (36.0-46.0); Hemoglobin 11.7 g/dL (12.2-16.2); Mean Corpuscular Hemoglobin 30.1 pg (28.0-32.0); Mean Corpuscular Volume 87.8 fL (80.0-100.0); Nucleated Red Blood Cells % 0.1 %
[2025-08-26 06:43] LABS: Albumin 3.7 g/dL (3.2-4.8); Anion Gap 11 (5-15); BUN/Creatinine Ratio 9.7 (10.0-20.0); Bilirubin, Total 0.3 mg/dL (0.2-1.0); Calcium 8.7 mg/dL (8.7-10.4); Carbon Dioxide 25 mmol/L (20-31); Chloride 106 mmol/L (98-107); Glucose 76 mg/dL (74-106); Potassium 3.7 mmol/L (3.5-5.1); Sodium 142 mmol/L (136-145); Total Protein 6.1 g/dL (5.7-8.2)
[2025-08-26 06:44] LABS: Alanine Aminotransferase 77 U/L (7-40); Alkaline Phosphatase 45 U/L (46-116); Blood Urea Nitrogen 6 mg/dL (9-23)
--- NOTE | 2025-08-26 10:07 | DVHPN2 ---
Reviewed: H&P Changes from previous H/P or p: No Changes General: Per HPI Objective Vitals Vital Signs Date Time Temp Pulse Resp B/P (MAP) Pulse Ox O2 Delivery O2 Flow Rate FiO2 08/26/25 07:47 79 18 100 08/26/25 07:43 Room Air 08/26/25 07:43 0 21 08/26/25 05:00 97.9 97/66 (76) 97.9 Intake/Output Intake and Output 08/26/25 07:00 Intake Total 1030 ml Balance 1030 ml Intake Oral 580 ml IV Total 450 ml # Voids 3 # Bowel Movements 2 Exam GEN: Healthy appearing, well-developed, NAD. HEENT: NC/AT; MMM. CV: RRR, no m/r/g. LUNGS: CTAB, no w/r/c. ABD: Soft, NT/ND, NBS, no masses or organomegaly. EXT: skin Warm, well perfused. no rashes. No clubbing, cyanosis, or edema. NEURO: Ambulating with no limitations. No focal deficits. Medications Current Medications Medications Dose Ordered Sig/Jaclyn Route Start Time Stop Time Status Last Admin Dose Admin Acetaminophen 650 mg ONCE STAT PO 08/23/25 14:39 08/23/25 14:40 Cancel Sodium Chloride 10 ml Q8HR IV 08/23/25 22:00 08/26/25 05:10 10 ML Sodium Chloride 1,000 ml @ 60 mls/hr [id number] IV 08/23/25 18:15 08/25/25 03:45 60 MLS/HR Ondansetron HCl 4 mg Q4HP PRN IV 08/23/25 18:15 08/25/25 11:05 4 MG Enoxaparin Sodium 40 mg DAILY SC 08/24/25 10:00 08/24/25 12:02 40 MG Zinc Sulfate 220 mg DAILY PO 08/24/25 10:00 08/25/25 08:09 220 MG Ascorbic Acid 500 mg BID PO 08/23/25 22:00 08/25/25 21:33 500 MG Multivitamins 1 tab DAILY PO 08/24/25 10:00 08/25/25 08:09 1 TAB Acetaminophen 650 mg Q6HP PRN PO 08/23/25 18:15 08/24/25 20:36 650 MG Oseltamivir Phosphate 75 mg Q12HR PO 08/23/25 22:00 08/28/25 21:59 08/25/25 21:34 75 MG Ipratropium [place] 0.5 mg Q6HWA NEB 08/24/25 06:00 08/26/25 07:43 0.5 MG Albuterol 2.5 mg Q6HPRN PRN NEB 08/23/25 18:15 08/25/25 12:57 2.5 MG Guaifenesin/ Dextromethorphan 10 ml Q4HP PRN PO 08/23/25 18:15 Doxycycline Hyclate 100 ml @ 50 mls/hr Q12H IV 08/24/25 14:00 08/26/25 03:14 50 MLS/HR Pantoprazole Sodium 40 mg DAILY IV 08/25/25 11:00 08/25/25 11:06 40 MG Ampicillin Sodium/ Sulbactam Sodium 3 gm/Sodium Chloride 100 ml @ 100 mls/hr Q6H IV 08/25/25 11:00 08/26/25 04:59 100 MLS/HR Laboratory Results Laboratory Tests 08/26/25 04:44 Chemistry Test 08/26/25 04:44 Albumin 3.7 g/dL (3.2-4.8) Calcium Level 8.7 mg/dL (8.7-10.4) Total Protein 6.1 g/dL (5.7-8.2) LFT Test 08/26/25 04:44 Alanine Aminotransferase (ALT) 77 U/L (7-40) H Alkaline Phosphatase 45 U/L (46-116) L Aspartate Amino Transferase (AST) 26 U/L (13-40) Total Bilirubin 0.3 mg/dL (0.2-1.0) Urinalysis Test 08/23/25 12:00 Urine Color Colorless (Yellow) Urine Clarity Turbid (Clear) H Urine pH 6.5 (5.0-9.0) Urine Specific [place] 1.022 (1.001-1.035) Urine Protein Trace (Negative) H Urine Ketones Negative (Negative) Urine Blood 3+ /uL (Negative) H Urine Nitrite Negative (Negative) Urine Bilirubin Negative (Negative) Urine Urobilinogen Normal mg/dL (Negative) Urine Leukocyte Esterase 1+ /uL (Negative) Urine RBC 446 /hpf (0 - 4) Urine Microscopic WBC 29 /HPF (0-5) H Urine Squamous Epithelial Cells Few /hpf (<5) Urine Bacteria Few /hpf (None Seen) H Urine Glucose Normal mg/dL (Normal) Microbiology Microbiology Date/Time Source Procedure Growth Status 08/23/25 18:22 Throat Nose/Throat Culture - Preliminary Resulted Labs and/or images reviewed: Labs reviewed by me, Image(s) reviewed by me Assessment/Plan Assessment/Plan Julius is a patient presenting with flu symptoms that have been ongoing since August 16. She initially sought care at urgent care on August 17, where she was prescribed antibiotics and steroids. However, these medications did not provide relief, and her condition worsened after completing the course yesterday. Last night, she experienced difficulty breathing, choking sensations, and difficulty swallowing. She reports that friends became sick after her initial illness, suggesting she may have been the source of transmission to her social contacts. She lives with her mother and denies having any personal medical conditions, fever , dry cough . 08/24: Patient started having URI symptoms 2 weeks ago, was treated in urgent Care with azithromycin and prednisone. Patient's symptoms returned. She came in with a shortness of breath, URI symptoms, found to have influenza pneumonia. Patient likely has postviral pneumonia, influenza a infection, UTI possible. Patient on ceftriaxone azithromycin, since patient failed azithromycin we will do ceftriaxone and doxycycline. Continue rescue inhalers prn. Continue Tamiflu for flu a infection. Patient will likely need inpatient treatment for another day until stabilized. 08/25: Patient now having emesis, some p.o. intolerance. We will change diet to full liquid diet continue IV access. Gastroenteritis infectious etiology likely, we will change antibiotics to Unasyn and doxycycline. Continuing IV fluids LR 100 cc/hour for total of 1 L. continue q.4 vital checks. Unstable to discharge today. We will also get blood culture and lactic acid level. 08/26: Patient remains off oxygen, if tolerating p.o. today we will be stable for discharge on doxycycline 100 mg twice daily for 5 days, antiemetics Zofran PRN 4 mg ODT, OTC. Cough cold medications for supportive care. Full liquid diet for 5 days Diagnosis: Pneumonia, community-acquired, Gram-negative/Gram-positive possible Acute gastroenteritis, infectious etiology likely Intractable nausea and vomiting due to above Postviral pneumonia, Gram-positive cocci staph likely Influenza a infection Bronchitis possible Ruled out strep pharyngitis Acute complicated UTI - Admit med/surge - Isolation precautions - start Tamiflu q.12 for 5 days - Provide breathing treatments for bronchospasm - Cough medication Robitassin for symptom relief - Monitor respiratory status closely; initiate emergency interventions if severe shortness of breath develops - evident on urinalysis - ordered urine bacterial culture - currently giving Rocephin and doxycycline. GI PPX: Protonox VTE ppx: Lovenox Diet: Regular Med surge Full code Plan discussed with: Patient My Orders Orders - LAWRENCE KOENIG MD Procedure Category Date Status Time Blood Culture GEOVANNA 08/25/25 In Process 10:42 Pantoprazole PHA 08/25/25 In Process (Protonix) 11:00 Full Liq Diet DIET 08/25/25 Transmitted Lunch Ampicillin & PHA 08/25/25 In Process Sulbactam Sodium 11:00 Date of Service: Aug 26, 2025 Billing Provider: LAWRENCE KOENIG MD Common Visit Codes: [id number] INP/OBS CARE(HIGH) LAWRENCE KOENIG MD Aug 26, 2025 10:07
[2025-08-26 10:32] LABS: Hepatitis B Surface Antigen Negative (Negative)
[2025-08-26 11:35] LABS: Hepatitis C Antibody Negative (Negative)
[2025-08-26] MEDS ORDERED: LACT1CAP15 PO (12:04)
[2025-08-26] MEDS ORDERED: AUG875T PO (12:04)
[2025-08-26] MEDS ORDERED: HYDR-4902 PO (12:04)
[2025-08-26] MEDS ORDERED: OSEL75CA5 PO (12:04)
[2025-08-26] MEDS ORDERED: DOXY1CAP57 PO (12:04)
[2025-08-26] MEDS ORDERED: ZOFR4T PO (12:04)
--- NOTE | 2025-08-26 12:11 | DVHDS2 ---
Discharge Summary Date of Admission Aug 23, 2025 at 18:11 Date of Discharge: Aug 26, 2025 Labs/Diagnostic Data: Laboratory Results Test 08/26/25 04:44 08/25/25 13:09 08/25/25 04:40 08/24/25 08:16 White Blood Count 4.7 10^3/uL (4.4-10.8) Red Blood Count 3.89 10^6/uL (4.0-5.20) Hemoglobin 11.7 g/dL (12.2-16.2) Hematocrit 34.2 % (36.0-46.0) Mean Corpuscular Volume 87.8 fL (80.0-100.0) Mean Corpuscular Hemoglobin 30.1 pg (28.0-32.0) Mean Corpuscular Hemoglobin Concent 34.3 g/dL (32.0-36.0) Red Cell Distribution Width 12.3 % (11.8-14.3) Platelet Count 274 10^3/uL (140-450) Mean Platelet Volume 7.7 fL (6.9-10.8) Neutrophils (%) (Auto) 40.1 % (37.0-80.0) Lymphocytes (%) (Auto) 49.2 % (10.0-50.0) Monocytes (%) (Auto) 8.2 % (0.0-12.0) Eosinophils (%) (Auto) 2.2 % (0.0-7.0) Basophils (%) (Auto) 0.3 % (0.0-2.0) Neutrophils # (Auto) 1.9 10 ^3/uL (1.6-8.6) Lymphocytes # (Auto) 2.3 10 ^3/uL (0.4-5.4) Monocytes # (Auto) 0.4 10 ^3/uL (0-1.3) Eosinophils # (Auto) 0.1 10 ^3/uL (0-0.8) Basophils # (Auto) 0 10 ^3/uL (0-0.2) Nucleated Red Blood Cells 0.1 % Sodium Level 142 mmol/L (136-145) Potassium Level 3.7 mmol/L (3.5-5.1) Chloride Level 106 mmol/L (98-107) Carbon Dioxide Level 25 mmol/L (20-31) Anion Gap 11 (5-15) Blood Urea Nitrogen 6 mg/dL (9-23) Creatinine 0.62 mg/dL (0.550-1.02) Glomerular Filtration Rate Calc 129 mL/min (>90) BUN/Creatinine Ratio 9.7 (10.0-20.0) Serum Glucose 76 mg/dL (74-106) Calcium Level 8.7 mg/dL (8.7-10.4) Total Bilirubin 0.3 mg/dL (0.2-1.0) Aspartate Amino Transferase (AST) 26 U/L (13-40) Alanine Aminotransferase (ALT) 77 U/L (7-40) Alkaline Phosphatase 45 U/L (46-116) Total Protein 6.1 g/dL (5.7-8.2) Albumin 3.7 g/dL (3.2-4.8) Lactic Acid Level 1.2 mmol/L (0.4-2.0) Hepatitis A IgM Antibody Negative Hepatitis B Surface Antigen Negative (Negative) Hepatitis B Core IgM Antibody Negative (Negative) Hepatitis C Antibody Negative (Negative) Urine Opiates Screen Neg (NEGATIVE) Urine Fentanyl Screen Neg (NEGATIVE) Urine Barbiturates Screen Neg (NEGATIVE) Urine Phencyclidine Screen Neg (NEGATIVE) Urine Amphetamines Screen Neg (NEGATIVE) Urine Benzodiazepines Screen Neg (NEGATIVE) Urine Cocaine Screen Neg (NEGATIVE) Urine Cannabinoids Screen Neg (NEGATIVE) Test 08/23/25 18:41 08/23/25 18:22 08/23/25 16:03 08/23/25 12:10 Magnesium Level 2.0 mg/dL (1.6-2.6) Group A Streptococcus Rapid Negative Blood Gas Specimen Type Arterial Blood Gas Sample Site Right brachial Blood Gas Patient Temperature 37.0 Arterial Blood Date Drawn [id number] Arterial Blood pH 7.394 (7.350-7.450) Arterial Blood Partial Pressure CO2 29.5 mmHg (32.0-45.0) Arterial Blood Partial Pressure O2 90.5 mmHg (83.0-108.0) Arterial Blood HCO3 17.6 mmol/L (21.0-28.0) Arterial Blood Oxygen Saturation 96.5 % (94.0-98.0) Arterial Blood Base Excess -6.0 mmol/L (-2.0-3.0) Arterial Blood Oxyhemoglobin 95.2 % (94.0-98.0) Arterial Blood Carboxyhemoglobin 0.6 % (0.5-1.5) Arterial Blood Methemoglobin 0.7 % (0.0-1.5) Arterial Blood Deoxyhemoglobin 3.5 % (0.0-5.0) Michael Test N/a Blood Gas Total Hemoglobin 13.30 g/dL (12.0-16.0) Blood Gas Modality Room air FiO2 % 21.0 Influenza Type A Antigen Positive (Negative) Influenza Type B Antigen Negative (Negative) SARS-CoV-2 Antigen (Rapid) Negative (NEGATIVE) Test 08/23/25 12:00 Urine Color Colorless (Yellow) Urine Clarity Turbid (Clear) Urine pH 6.5 (5.0-9.0) Urine Specific [place] 1.022 (1.001-1.035) Urine Protein Trace (Negative) Urine Ketones Negative (Negative) Urine Blood 3+ /uL (Negative) Urine Nitrite Negative (Negative) Urine Bilirubin Negative (Negative) Urine Urobilinogen Normal mg/dL (Negative) Urine Leukocyte Esterase 1+ /uL (Negative) Urine RBC 446 /hpf (0 - 4) Urine Microscopic WBC 29 /HPF (0-5) Urine Squamous Epithelial Cells Few /hpf (<5) Urine Bacteria Few /hpf (None Seen) Urine Glucose Normal mg/dL (Normal) Other Laboratory Tests 08/26/25 04:44 Brief Hx & Hospital Course: Julius is a patient presenting with flu symptoms that have been ongoing since August 16. She initially sought care at urgent care on August 17, where she was prescribed antibiotics and steroids. However, these medications did not provide relief, and her condition worsened after completing the course yesterday. Last night, she experienced difficulty breathing, choking sensations, and difficulty swallowing. She reports that friends became sick after her initial illness, suggesting she may have been the source of transmission to her social contacts. She lives with her mother and denies having any personal medical conditions, fever , dry cough . 08/24: Patient started having URI symptoms 2 weeks ago, was treated in urgent Care with azithromycin and prednisone. Patient's symptoms returned. She came in with a shortness of breath, URI symptoms, found to have influenza pneumonia. Patient likely has postviral pneumonia, influenza a infection, UTI possible. Patient on ceftriaxone azithromycin, since patient failed azithromycin we will do ceftriaxone and doxycycline. Continue rescue inhalers prn. Continue Tamiflu for flu a infection. Patient will likely need inpatient treatment for another day until stabilized. 08/25: Patient now having emesis, some p.o. intolerance. We will change diet to full liquid diet continue IV access. Gastroenteritis infectious etiology likely, we will change antibiotics to Unasyn and doxycycline. Continuing IV fluids LR 100 cc/hour for total of 1 L. continue q.4 vital checks. Unstable to discharge today. We will also get blood culture and lactic acid level. 08/26: Patient remains off oxygen, if tolerating p.o. today we will be stable for discharge on doxycycline 100 mg twice daily for 5 days, antiemetics Zofran PRN 4 mg ODT, OTC. Cough cold medications for supportive care. Full liquid diet for 5 days Diagnosis: Pneumonia, community-acquired, Gram-negative/Gram-positive possible Acute gastroenteritis, infectious etiology likely Intractable nausea and vomiting due to above Postviral pneumonia, Gram-positive cocci staph likely Influenza a infection Acute complicated UTI Bronchitis possible Ruled out strep pharyngitis Plan: -Tamiflu 75 mg twice daily 5 days -Augmentin 875 mg twice daily for 5 days -Doxycycline 100 mg twice daily 5 days -Full liquid diet 1 week (soups, cream of wheat etc.) - For nausea, as needed Zofran 4 mg ODT every 6 hours -Florastor 2 tablets daily 14 days ; can also take whole [place] yogurt tbsp full twice daily if not lactose tolerance -For pain 1st line Tylenol, second-line ibuprofen OTC, 3rd line prescription [place] 5 mg up to 3 times daily as needed, -Continue other home medications - Follow up with PCP to review discharge Condition at Discharge: Fair Final Diagnosis/Problems List Pneumonia, community-acquired, Gram-negative/Gram-positive possible Acute gastroenteritis, infectious etiology likely Intractable nausea and vomiting due to above Postviral pneumonia, Gram-positive cocci staphococcal likely Influenza a infection Acute complicated UTI Bronchitis possible Ruled out strep pharyngitis Discharge Disposition: Home Discharge Instruct/Medications Scheduled Nitrofurantoin Monohydrate Mac (Macrobid), 100 MG PO BID Discharge Statement: "Patient was advised to return to the ER or call 911 if any headaches, dizziness, shortness of breath, chest pain, abdominal pain, bleeding, fevers, or worsening of medical condition. Patient was counseled about treatment plan, medications, possible side effects, patientverbalized understanding. All questions were answered to the best of my ability. This discharge took greater then 30 minutes in planning, reviewing documentation, counseling the patient, and discussing with other team members." ASSESSMENT ASSESSMENT Assessment Date of Service: Aug 26, 2025 Billing Provider: LAWRENCE KOENIG MD Common Visit Codes: 83610-XJP/OBS DISCH DAY >30min LAWRENCE KOENIG MD Aug 26, 2025 12:11
== END 2025-08-26 14:49 | disposition home or self-care (01) | DRG 249 ==
LOC: ER 11:28 → OVERFLOW 18:11 → EAST 08-24 17:36
PROVIDERS: ADMIT Student in an Organized Health Care Education/Training Program; ATTEND Student in an Organized Health Care Education/Training Program
DX: A09 Infectious gastroenteritis and colitis, unspecified (principal); J10.08 Influenza due to other identified influenza virus with other specified pneumonia; J15.69 Pneumonia due to other Gram-negative bacteria; J40 Bronchitis, not specified as acute or chronic; N30.00 Acute cystitis without hematuria; J15.9 Unspecified bacterial pneumonia; J98.01 Acute bronchospasm; Z20.822 Contact with and (suspected) exposure to COVID-19; R79.89 Other specified abnormal findings of blood chemistry; Z90.49 Acquired absence of other specified parts of digestive tract; Z82.5 Family history of asthma and other chronic lower respiratory diseases; Z78.9 Other specified health status
CPT/HCPCS: 36415; 36600; 71045; 76705; 80053; 80074; 80307; 81001; 82805; 83605; 83735; 85025; 87040; 87070; 87426; 87804; 87880; 94640; G0378; J1885; J2405; J2470